=== PATIENT | male | born 1965 | race African-American/Black ===

== ENCOUNTER 2018-09-18 09:50 | Inpatient (IN) | payer OTHER ==
[~2018-09-18] VITALS: Ht 175.3 cm; Wt 118.4 kg
[2018-10-14] VITALS (13 sets, daily range): BP systolic 108–139; BP diastolic 64–89; PULSE 82–106; TEMP 97–98.6
[2018-10-14] MEDS ORDERED: LIPITOR 40MG TA40 MG PO (06:38)
[2018-10-14] MEDS ORDERED: MICARDIS20 MG PO (06:39)
[2018-10-15 00:05] VITALS: BP 127/63; PULSE 86; TEMP 98.3
[2018-10-15 05:05] VITALS: BP 155/66; PULSE 105; TEMP 98.6
[2018-10-15 06:02] LABS: BASO % 0.2 % (0.0-2.0); EOS % 0.1 % (0-4.0); GRAN # 7.2 (1.4-6.5); HEMATOCRIT 35.7 % (42.0-52.0); HEMOGLOBIN 11.9 g/dl (13.5-18.0); LYMPH # 3.1 (1.2-3.4); MEAN CELL VOLUME 84 fl (80.0-100.0); MEAN CORPUSCULAR HEMOGLOBIN 28 pg (27.0-31.0); MEAN CORPUSCULAR HGB CONC 33 g/dl (33.0-37.0); MEAN PLATELET VOLUME 10.3 fl (7.4-10.4); MONO # 1.2 (0.1-0.6); MONO % 10.4 % (1.7-9.3); PLATELET COUNT 215 K/mm3 (130-400); RED BLOOD COUNT 4.25 M/mm3 (4.20-5.60); REDCELL DISTRIBUTION WIDTH-CV 14.4 % (11.5-14.5)
[2018-10-15 06:16] LABS: CALCIUM 8.6 mg/dL (8.4-10.2); CREATININE, serum 0.95 mg/dL (0.66-1.25); POTASSIUM 4.2 mmol/L (3.4-5.0)
[2018-10-15 08:55] VITALS: BP 129/70; PULSE 90; TEMP 99.3
[2018-10-15 11:34] VITALS: BP 122/70; PULSE 88; TEMP 98.7
[2018-10-15 16:10] VITALS: BP 120/69; PULSE 63; TEMP 97.8
== END 2018-10-15 16:45 | disposition home or self-care (01) | DRG 708 ==
LOC: SURG 10-14 05:32 → INPTSU 10-14 05:32 → SURG 10-14 07:30
PROVIDERS: Urology
PROC: 07TC4ZZ Resection of Pelvis Lymphatic, Percutaneous Endoscopic Approach (ICD-10-PCS; 2018-10-14)
PROC: 0WQF4ZZ Repair Abdominal Wall, Percutaneous Endoscopic Approach (ICD-10-PCS; 2018-10-14)
PROC: 8E0W4CZ Robotic Assisted Procedure of Trunk Region, Percutaneous Endoscopic Approach (ICD-10-PCS; 2018-10-14)
PROC: 0VT04ZZ Resection of Prostate, Percutaneous Endoscopic Approach (ICD-10-PCS; principal; 2018-10-14 07:30)
DX: C61 Malignant neoplasm of prostate (principal); K42.9 Umbilical hernia without obstruction or gangrene; E78.5 Hyperlipidemia, unspecified; F17.210 Nicotine dependence, cigarettes, uncomplicated
CPT/HCPCS: A4314; A9284; C1713; J0330; J0690; J1100; J1885; J2250; J2370; J2704; J3010; J7120